=== PATIENT | female | born 1995 | race Caucasian/White ===

== ENCOUNTER 2018-10-18 13:12 | Emergency (ER) | payer MEDICAID, OTHER ==
[~2018-10-18] VITALS: Ht 152.4 cm; Wt 75.3 kg
[~2018-10-18 13:12] MED LIST: IBUP-1542 PO; PRENAT PO
[2018-10-18 13:17] VITALS: BP 123/68; PULSE 83; RESP 19; Ht 152.4 cm; Wt 75.3 kg
[2018-10-18] MEDS ORDERED: ONDANSETRON 4 MG INJ IV STA (13:37)
[2018-10-18] MEDS ORDERED: KETOROLAC 30 MG INJ IV STA (13:37)
[2018-10-18] MEDS ORDERED: IBUP-1542 PO (15:32)
[2018-10-18] MEDS ORDERED: ONDA4TAB14 PO (15:35)
--- NOTE | 2018-10-18 15:54 | ERD ---
ER Documentation Chief Complaint Chief Complaint RLQ PAIN HPI Patient is a 22-year-old female, no past medical history, presents to the ER for concerns of right lower quadrant pain for last week. Patient states today her pain became worse so she presents to the ER. Patient describes the pain to be "stinging". Patient states today she also started to feel nauseous. Patient denies any vomiting. She denies any fever. Patient denies any dysuria, frequency, urgency or hematuria. Patient denies any diarrhea or constipation. Patient states her last menstrual period was 2 weeks ago. No recent travel. No sick contacts. ROS All systems reviewed and are negative except as per history of present illness. Medications Home Meds Active Scripts Ondansetron (Ondansetron Odt) 4 Mg Tab.rapdis, 4 MG PO Q6H PRN for NAUSEA AND/OR VOMITING, #10 TAB Prov:RAVEN MOY PA-C 10/18/18 Ibuprofen* (Motrin*) 600 Mg Tab, 600 MG PO Q6, #30 TAB Prov:RAVEN MOY PA-C 10/18/18 Ibuprofen* (Motrin*) 600 Mg Tab, 600 MG PO Q6, #20 TAB Prov:CALLI RIVERA I. ARCHITECTURAL TECHNOLOGIST 06/18/15 Reported Medications Multivit/Min/Fol Ac/Iron/Pren* ( S*) 1 Tab Tab, 1 TAB PO DAILY, TAB 03/09/14 Allergies Allergies: Coded Allergies: No Known Allergy (Unverified , 03/09/14) PMhx/Soc History of Surgery: No Anesthesia Reaction: No Hx Neurological Disorder: No Hx Respiratory Disorders: No Hx Cardiac Disorders: No Hx Psychiatric Problems: No Hx Miscellaneous Medical Probl: No Hx Alcohol Use: No Hx Substance Use: No Hx Tobacco Use: No FmHx Family History: No diabetes Physical Exam Vitals Vital Signs Date Temp Pulse Resp B/P (MAP) Pulse Ox O2 O2 Flow FiO2 Time Delivery Rate 10/18/18 98.5 83 19 123/68 98 13:17 (86) Physical Exam GENERAL: Well-developed, well-nourished female. Appears in no acute distress. HEAD: Normocephalic, atraumatic. EYES: Pupils are equally reactive bilaterally. EOMs grossly intact. No conjunctival erythema. ENT: Moist mucous membranes. No uvula deviation. No kissing tonsils. NECK: Supple. No meningismus. Normal range of motion of the neck. LUNG: Clear to auscultation bilaterally. No rhonchi, wheezing, rales or coarse breath sounds. HEART: Regular rate and rhythm. No murmurs, rubs or gallops. ABDOMEN: Nondistended. Minimally tender to palpation in the right lower quadrant.. Positive bowel sounds in all four quadrants. No rebound tenderness, no guarding. (-) McBurney's point tenderness. No CVA tenderness. BACK: No midline tenderness. EXTREMITIES: Equal pulses bilaterally. No peripheral clubbing, cyanosis or edema. No unilateral leg swelling. NEUROLOGIC: Alert and oriented. Moving all four extremities without any difficul ty. Normal speech. Steady gait. SKIN: Normal color. Warm and dry. No rashes or lesions. Result Diagram: 10/18/18 1354 10/18/18 1354 Results 24 hrs Laboratory Tests Test 10/18/18 13:54 10/18/18 13:57 White Blood Count 6.7 10^3/ul Red Blood Count 4.93 10^6/ul Hemoglobin 13.9 g/dl Hematocrit 42.0 % Mean Corpuscular Volume 85.2 fl Mean Corpuscular Hemoglobin 28.2 pg Mean Corpuscular Hemoglobin Concent 33.1 g/dl Red Cell Distribution Width 12.2 % Platelet Count 229 10^3/UL Mean Platelet Volume 11.1 fl Immature Granulocytes % 0.200 % Neutrophils % 66.4 % Lymphocytes % 25.1 % Monocytes % 6.8 % Eosinophils % 0.9 % Basophils % 0.6 % Nucleated Red Blood Cells % 0.0 /100WBC Immature Granulocytes # 0.010 10^3/ul Neutrophils # 4.4 10^3/ul Lymphocytes # 1.7 10^3/ul Monocytes # 0.5 10^3/ul Eosinophils # 0.1 10^3/ul Basophils # 0.0 10^3/ul Nucleated Red Blood Cells # 0.0 10^3/ul Urine Color YELLOW Urine Clarity SLIGHTLY CLOUDY Urine pH 7.0 Urine Specific [place] 1.020 Urine Ketones NEGATIVE mg/dL Urine Nitrite NEGATIVE mg/dL Urine Bilirubin NEGATIVE mg/dL Urine Urobilinogen NEGATIVE mg/dL Urine Leukocyte Esterase NEGATIVE Carlos/ul Urine Microscopic RBC 0 /HPF Urine Microscopic WBC 1 /HPF Urine Squamous Epithelial Cells FEW /HPF Urine Hemoglobin NEGATIVE mg/dL Urine Glucose NEGATIVE mg/dL Urine Total Protein NEGATIVE mg/dl Sodium Level 141 mmol/L Potassium Level 3.8 mmol/L Chloride Level 103 mmol/L Carbon Dioxide Level 28 mmol/L Anion Gap 10 Blood Urea Nitrogen 12 mg/dl Creatinine 0.70 mg/dl Est Glomerular Filtrat Rate mL/min > 60 mL/min Glucose Level 85 mg/dl Calcium Level 9.9 mg/dl Total Bilirubin 0.4 mg/dl Direct Bilirubin 0.00 mg/dl Indirect Bilirubin 0.4 mg/dl Aspartate Amino Transf (AST/SGOT) 25 IU/L Alanine Aminotransferase (ALT/SGPT) 21 IU/L Alkaline Phosphatase 71 IU/L Total Protein 7.5 g/dl Albumin 4.6 g/dl Globulin 2.90 g/dl Albumin/Globulin Ratio 1.58 Lipase 86 U/L POC Beta HCG, Qualitative NEGATIVE Current Medications Medications Dose Sig/Murtaza Start Time Status Last (Trade) Ordered Route PRN Stop Time Admin Dose Reason Admin Ondansetron 4 mg ONCE STAT 10/18/18 DC 10/18/18 HCl (Zofran IV 13:37 14:30 Inj) 10/18/18 13:38 Ketorolac 30 mg ONCE STAT 10/18/18 DC 10/18/18 Tromethamine IV 13:37 14:30 (Toradol) 10/18/18 13:38 Procedures/MDM ED COURSE: The patient was stable throughout ED course. I kept the patient and/or family informed of laboratory and diagnostic imaging results throughout the ED course. DIAGNOSTIC IMAGING: Read by radiologist. Patient: PARISH VAZQUEZ : 1995 Age: 22 Sex: F MR #: [id number] DOS: 10/18/18 1337 Ordering MD: RAVEN MOY PA-C Location: [facility] Room/Bed: PROCEDURE: US Pelvis. CLINICAL INDICATION: pelvic pain TECHNIQUE: Multiple sonographic images of the pelvis were obtained utilizing transabdominal and endovaginal technique. The images were reviewed on a PACS workstation. COMPARISON: None. FINDINGS: The uterus is normal in size with a normal appearance of the myometrium. The uterus measures 9.0 x 3.7 x 4.5 cm. The endometrial stripe is homogeneous in appearance and has the thickness of 9 mm. The ovaries are normal in size and echogenicity. Normal Doppler flow is identified in both ovaries. The right ovary measures 2.7 x 2.0 x 1.8 cm. The left ovary measures 2.3 x 1.8 x 1.6 cm. Small free fluid is present within the pelvis. RPTAT: AA IMPRESSION: Unremarkable pelvic ultrasound. Small amount of free fluid in the posterior cul-de-sac, likely physiologic. .Mike Pete MD, MD Date Time Electronically viewed and signed by .Mike Pete MD, MD on 10/18/2018 15:26 .S/ CC: RAVEN MOY PA-C [id number] PROCEDURES: None. MEDICATIONS GIVEN: Toradol, Zofran MEDICAL DECISION MAKING: This is a 22-year-old female presents the ER for concerns of right lower quadrant pain and nausea x1 week. Vital signs were reviewed. Patient is afebrile. On exam, patient did have some mild right lower quadrant tenderness. She had no rebound or guarding. She had no peritoneal signs. IV line was established. Blood work was obtained. CBC showed no evidence of systemic infection or severe anemia. CMP showed no evidence of electrolyte abnormalities, severe acidosis, alkalosis, renal failure, or liver disease. Lipase showed no evidence of acute pancreatitis. UA showed no evidence of acute infection or hematuria. Urine test was negative. Pelvic ultrasound was unremarkable. Small amount of free fluid was noted in the posterior cul-de-sac, likely physiological. Patient reported improvement in pain prior to discharge. Explained to the patient that I am unable to definitively rule out appendicitis however my suspicion is low given that patient does not have a white count and she has had symptoms for over 1 week now. Patient was advised to monitor symptoms closely and return to the ER in 10 to 12 hours for recheck. Patient continues to have pain at that time CT scan will be considered. Differential diagnoses include but was not limited to acute coronary syndrome, AAA, mesenteric ischemia, lower lobe pneumonia, DKA, bowel perforation, cholecystitis, choledocholithiasis, ascending cholangitis, hepatic abscess, pancreatitis, PUD, gastritis, GERD, splenic rupture, diverticulitis, UTI, pyelonephritis, nephrolithiasis, appendicitis, constipation, , ectopic , PID, ovarian torsion or tubo-ovarian abscess. PRESCRIPTIONS: Ibuprofen, Zofran DISCHARGE: At this time, patient is stable for discharge and outpatient management. I have instructed the patient to follow-up with his/her primary care physician in 1-2 days. I have instructed the patient to promptly return to the ER at any time for any new or worsening symptoms including increased pain, nausea, vomiting, diarrhea, fever, weakness or LOC. The patient and/or family expressed understanding of and agreement with this plan. All questions were answered. Home care instructions were provided. Disclaimer: Inadvertent spelling and grammatical errors are likely due to E HR/dictation software use and do not reflect on the overall quality of patient care. Also, please note that the electronic time recorded on this note does not necessarily reflect the actual time of the patient encounter. Departure Diagnosis: Primary Impression: Abdominal pain Abdominal location: right lower quadrant Qualified Codes: R10.31 - Right lower quadrant pain Condition: Fair Patient Instructions: Abdominal Pain Referrals: [facility] YOU HAVE RECEIVED A MEDICAL SCREENING EXAM AND THE RESULTS INDICATE THAT YOU DO NOT HAVE A CONDITION THAT REQUIRES URGENT TREATMENT IN THE EMERGENCY DEPARTMENT. FURTHER EVALUATION AND TREATMENT OF YOUR CONDITION CAN WAIT UNTIL YOU ARE SEEN IN YOUR DOCTORS OFFICE WITHIN THE NEXT 1-2 DAYS. IT IS YOUR RESPONSIBILITY TO MAKE AN APPOINTMENT FOR FOLOW-UP CARE. IF YOU HAVE A PRIMARY DOCTOR --you should call your primary doctor and schedule an appointment IF YOU DO NOT HAVE A PRIMARY DOCTOR YOU CAN CALL OUR PHYSICIAN REFERRAL HOTLINE AT IF YOU CAN NOT AFFORD TO SEE A PHYSICIAN YOU CAN CHOSE FROM THE FOLLOWING [facility] [address] [facility]. [facility] [address] [facility]. [facility] [address] [facility] [address] [facility] [address] [facility]. [facility]. [address] [facility]. [facility] YOU HAVE RECEIVED A MEDICAL SCREENING EXAM AND THE RESULTS INDICATE THAT YOU DO NOT HAVE A CONDITION THAT REQUIRES URGENT TREATMENT IN THE EMERGENCY DEPARTMENT. FURTHER EVALUATION AND TREATMENT OF YOUR CONDITION CAN WAIT UNTIL YOU ARE SEEN IN YOUR DOCTORS OFFICE WITHIN THE NEXT 1-2 DAYS. IT IS YOUR RESPONSIBILITY TO MAKE AN APPOINTMENT FOR FOLOW-UP CARE. IF YOU HAVE A PRIMARY DOCTOR --you should call your primary doctor and schedule and appointment IF YOU DO NOT HAVE A PRIMARY DOCTOR YOU CAN CALL OUR PHYSICIAN REFERRAL HOTLINE AT . IF YOU CAN NOT AFFORD TO SEE A PHYSICIAN YOU CAN CHOSE FROM THE FOLLOWING [facility]: [facility] [address] [place] [address] [facility] [address] [place] [address] [facility] [address] [place] [address] Additional Instructions: Abdominal pain recheck advised 10-12 hours or sooner for any new or worsening pain. RAVEN MOY PA-C October 18, 2018 15:54
== END 2018-10-18 16:19 | disposition home or self-care (01) ==
LOC: FTE 13:12
DX: R10.31 Right lower quadrant pain (principal); R10.2 Pelvic and perineal pain
CPT/HCPCS: 36415; 76830; 76856; 80053; 81001; 81025; 83690; 85025; 96374; 96375; J1885; J2405; Z7502; 81003

== ENCOUNTER 2018-10-25 13:24 | Emergency (ER) | payer OTHER ==
[~2018-10-25] VITALS: Ht 152.4 cm; Wt 74.4 kg
[~2018-10-25 13:24] MED LIST changes: +ONDA4TAB14 PO
[2018-10-25 13:33] VITALS: BP 129/78; PULSE 90; RESP 16; Ht 152.4 cm; Wt 74.4 kg
--- NOTE | 2018-10-25 14:26 | ERD ---
ER Documentation Chief Complaint Chief Complaint RT SIDED BACK PAIN RADIATING TO FRONT. NO C/O DYSURIA. SEEN FOR SAME HPI 22-year-old female, previously healthy, presents to the emergency department, complaining of 1 week with progressive right lower quadrant abdominal pain, radiating to the back the patient denies fever, no chills, no diarrhea or constipation, associated with dysuria., No nausea or vomiting. ROS All systems reviewed and are negative except as per history of present illness. Medications Home Meds Active Scripts Ondansetron (Ondansetron Odt) 4 Mg Tab.rapdis, 4 MG PO Q6H PRN for NAUSEA AND/OR VOMITING, #10 TAB Prov:RAVEN MOY PA-C 10/18/18 Ibuprofen* (Motrin*) 600 Mg Tab, 600 MG PO Q6, #30 TAB Prov:RAVEN MOY PA-C 10/18/18 Ibuprofen* (Motrin*) 600 Mg Tab, 600 MG PO Q6, #20 TAB Prov:CALLI RIVERA NP 06/18/15 Reported Medications Multivit/Min/Fol Ac/Iron/Pren* ( S*) 1 Tab Tab, 1 TAB PO DAILY, TAB 03/09/14 Allergies Allergies: Coded Allergies: No Known Allergy (Unverified , 03/09/14) PMhx/Soc History of Surgery: No Anesthesia Reaction: No Hx Neurological Disorder: No Hx Respiratory Disorders: No Hx Cardiac Disorders: No Hx Psychiatric Problems: No Hx Miscellaneous Medical Probl: No Hx Alcohol Use: No Hx Substance Use: No Hx Tobacco Use: No Physical Exam Vitals Vital Signs Date Temp Pulse Resp B/P (MAP) Pulse Ox O2 O2 Flow FiO2 Time Delivery Rate 10/25/18 97.7 90 16 129/78 99 13:33 (95) Physical Exam Const: No acute distress Head: Atraumatic Eyes: Normal Conjunctiva ENT: Normal External Ears, Nose and Mouth. Neck: Full range of motion. No meningismus. Resp: Clear to auscultation bilaterally Cardio: Regular rate and rhythm, no murmurs Abd: Soft, mild pelvic pain to deep palpation, no peritoneal signs, non distended. Normal bowel sounds Skin: No petechiae or rashes Back: No midline or flank tenderness Ext: No cyanosis, or edema Neur: Awake and alert Psych: Normal Mood and Affect Result Diagram: 10/25/18 1444 10/25/18 1444 Results 24 hrs Laboratory Tests Test 10/25/18 14:44 10/25/18 14:47 10/25/18 14:48 White Blood Count 7.7 10^3/ul Red Blood Count 4.85 10^6/ul Hemoglobin 13.6 g/dl Hematocrit 41.8 % Mean Corpuscular Volume 86.2 fl Mean Corpuscular Hemoglobin 28.0 pg Mean Corpuscular 32.5 g/dl Hemoglobin Concent Red Cell Distribution Width 12.6 % Platelet Count 217 10^3/UL Mean Platelet Volume 11.3 fl Immature Granulocytes % 0.300 % Neutrophils % 63.9 % Lymphocytes % 27.8 % Monocytes % 6.3 % Eosinophils % 1.2 % Basophils % 0.5 % Nucleated Red Blood Cells % 0.0 /100WBC Immature Granulocytes # 0.020 10^3/ul Neutrophils # 4.9 10^3/ul Lymphocytes # 2.1 10^3/ul Monocytes # 0.5 10^3/ul Eosinophils # 0.1 10^3/ul Basophils # 0.0 10^3/ul Nucleated Red Blood Cells # 0.0 10^3/ul Sodium Level 140 mmol/L Potassium Level 3.9 mmol/L Chloride Level 105 mmol/L Carbon Dioxide Level 25 mmol/L Anion Gap 10 Blood Urea Nitrogen 11 mg/dl Creatinine 0.70 mg/dl Est Glomerular Filtrat Rate mL/min > 60 mL/min Glucose Level 90 mg/dl Calcium Level 9.5 mg/dl Lipase 72 U/L POC Beta HCG, Qualitative NEGATIVE Bedside Urine pH (LAB) 6.0 Bedside Urine Protein (LAB) Negative Bedside Urine Glucose (UA) Negative Bedside Urine Ketones (LAB) Negative Bedside Urine Blood Negative Bedside Urine Nitrite (LAB) Negative Bedside Urine Leukocyte Esterase 1+ (L Procedures/MDM Differential diagnosis include but not limited to: UTI, colitis, gastroenteritis, kidney stones, irritable bowel syndrome, inflammatory bowel syn drome, malabsorption syndrome, cholelithiasis, food intolerance, medication side effect, pancreatitis, diverticulitis, bowel obstruction. Low suspicion for acute abdomen Physical examination and clinical presentation consistent most likely with acute cystitis, no evidence of pyelonephritis. During the ED course the patient remained stable, no new complaints. Results and clinical impression discussed with patient who agrees with management. The patient is stable to be treated outpatient and will be discharged home, some side effects of prescribed medications (headache, rash, nausea, vomiting, diarrhea, drowsiness, habituation, bleeding, hypertension, interactions with other medications) were reviewed. The patient was instructed to follow up with the primary care provider in the next 48h. If symptoms persist, worsen or new symptoms develop, then patient should return to the ED immediately. Instructions explained and given directly by me to the patient with acknowledgment and demonstrated understanding. Disclaimer: Inadvertent spelling and grammatical errors are likely due to EHR/ dictation software use and do not reflect on the overall quality of patient care. Also, please note that the electronic time recorded on this note does not necessarily reflect the actual time of the patient encounter. Departure Diagnosis: Primary Impression: Abdominal pain Additional Impression: Acute cystitis Condition: Stable Additional Instructions: Thank you very much for allowing us to participate in your care. Your health and safety is our top priority at [facility]. Call your primary care doctor TOMORROW for an appointment during the next 2-4 days and bring all the information provided. Have prescriptions filled and follow precisely the directions on the label. If the symptoms get worse and your provider is unavailable, return to the Emergency Department immediately. FAITH LAY MD October 25, 2018 14:26
[2018-10-25] MEDS ORDERED: CIPR-193 PO (15:41)
== END 2018-10-25 16:03 | disposition home or self-care (01) ==
LOC: FTE 13:24
DX: N30.00 Acute cystitis without hematuria (principal)
CPT/HCPCS: 36415; 74176; 80048; 81003; 81025; 83690; 85025; Z7502

== ENCOUNTER 2018-12-11 01:00 | Emergency (ER) | payer OTHER ==
[~2018-12-11] VITALS: Ht 152.4 cm; Wt 75.3 kg
[~2018-12-11 01:00] MED LIST changes: +CIPR-193 PO
[2018-12-11 01:02] VITALS: BP 131/73; PULSE 70; RESP 16; Ht 152.4 cm; Wt 75.3 kg
[2018-12-11] MEDS ORDERED: ACETAMINOPHEN 500 MG TAB PO STA (01:47)
[2018-12-11] MEDS ORDERED: MECLIZINE 12.5 MG TAB PO ONE (02:00)
--- NOTE | 2018-12-11 02:46 | ERD ---
ER Documentation Chief Complaint Chief Complaint PATRICIA/back pain/AP x1 week w/ nausea/diarrhea/dizziness HPI This is a 22-year-old female who presented emergency department with multiple complaints including headache, back pain, abdominal pain for about a week, nausea and vomiting, with diarrhea and dizziness that is on and off for about a week. LMP: Stated that she is on it. A0. Denies headache, head injury, loss of consciousness, dizziness, neck pain, neck stiffness, throat pain, difficulty swallowing, difficulty breathing lying flat, shoulder pain, chest pain, back pain, abdominal pain, nausea, vomiting, constipation, diarrhea, urinary symptoms, or possibility being pregn ant, loss of bowel and bladder control, trauma, injury, falls, difficulty walking due to pain, numbness or tingling sensation, calf pain, recent travel, recent major surgery in the last 3 weeks, calf pain, recent long travel, recent exposure to any illness, recent antibiotic use in the last 3 months, fever, chills, seizures. Past medical history: Denies. Surgical history: Denies. Social: Denies smoking, use of alcoholic beverages, use of illegal drugs. ROS All systems reviewed and are negative except as per history of present illness. Medications Home Meds Active Scripts Ondansetron Hcl* (Zofran*) 4 Mg Tablet, 4 MG PO Q8H PRN for NAUSEA AND/OR VOMITING, #30 TAB Prov:SABINO STEPHEN 12/11/18 Acetaminophen* (Tylophen*) 500 Mg Capsule, 1 CAP PO Q6H PRN for PAIN AND OR ELEVATED TEMP, #20 CAP Prov:SABINO STEPHEN 12/11/18 Meclizine Hcl* (Antivert*) 12.5 Mg Tab, 12.5 MG PO Q6H PRN for DIZZINESS, #20 TAB Prov:SABINO STEPHEN 12/11/18 Ciprofloxacin Hcl* (Ciprofloxacin Hcl*) 250 Mg Tablet, 250 MG PO BID, #6 TAB Prov:FAITH LAY MD 10/25/18 Ondansetron (Ondansetron Odt) 4 Mg Tab.rapdis, 4 MG PO Q6H PRN for NAUSEA AND/OR VOMITING, #10 TAB Prov:RAVEN MOY PA-C 10/18/18 Ibuprofen* (Motrin*) 600 Mg Tab, 600 MG PO Q6, #30 TAB Prov:RAVEN MOY PA-C 10/18/18 Ibuprofen* (Motrin*) 600 Mg Tab, 600 MG PO Q6, #20 TAB Prov:RIVERACALLI Rodrigo TAM 06/18/15 Reported Medications Multivit/Min/Fol Ac/Iron/Pren* ( S*) 1 Tab Tab, 1 TAB PO DAILY, TAB 03/09/14 Allergies Allergies: Coded Allergies: No Known Allergy (Unverified , 03/09/14) PMhx/Soc History of Surgery: No Anesthesia Reaction: No Hx Neurological Disorder: No Hx Respiratory Disorders: Yes (asthma 2011 last episode.) Hx Cardiac Disorders: No Hx Psychiatric Problems: No Hx Miscellaneous Medical Probl: No Hx Alcohol Use: Yes (occasionally.) Hx Substance Use: No Hx Tobacco Use: No Physical Exam Vitals Vital Signs Date Temp Pulse Resp B/P (MAP) Pulse Ox O2 O2 Flow FiO2 Time Delivery Rate 12/11/18 97.7 70 16 131/73 99 01:02 (92) Physical Exam Const: No acute distress Head: Atraumatic Eyes: Normal Conjunctiva. Eyeballs are not sunken. No signs of severe dehydration. ENT: Normal External Ears, Nose and Mouth. Bilateral ears: TMs are not erythematous but no bleeding. No discharge with no hearing loss. No mastoid tenderness. Nose: Midline without deviation. There is no frontal or maxillary sinus tenderness palpation. Throat: Uvula is midline and nondisplaced. Tonsils are +1 bilaterally without redness and without exudates. Tolerating secretions. Patent airway. Speaks full and clear sentences. No tripoding. No signs of airway obstruction. Neck: Full range of motion. No meningismus. No nuchal rigidity. No signs of meningeal irritation. Resp: Clear to auscultation bilaterally. No accessory muscle use in breathing. Cardio: Regular rate and rhythm, no murmurs Abd: Soft, non tender, non distended. Normal bowel sounds. Negative Lott sign. Negative Nomi sign (heel jar test). Negative psoas sign. Negative Rovsing sign. Able to jump 10 times without developing lower abdominal pain. No CVA tenderness. Ambulatory with steady gait and without pain to abdomen. Skin: No petechiae or rashes. Color appears normal for ethnicity. No skin tenting. No signs of severe dehydration. Back: No midline or flank tenderness Ext: No cyanosis, or edema. No cyanosis. Unremarkable bilateral upper and lower extremities. Neur: Awake and alert. Romberg test is negative. No neurological deficits. Psych: Normal Mood and Affect. Results 24 hrs Laboratory Tests Test 12/11/18 02:10 12/11/18 02:13 Urine Color STRAW Urine Clarity CLEAR Urine pH 6.0 Urine Specific [place] 1.013 Urine Ketones NEGATIVE mg/dL Urine Nitrite NEGATIVE mg/dL Urine Bilirubin NEGATIVE mg/dL Urine Urobilinogen NEGATIVE mg/dL Urine Leukocyte Esterase TRACE Carlos/ul Urine Microscopic RBC 0 /HPF Urine Microscopic WBC 1 /HPF Urine Squamous Epithelial Cells FEW /HPF Urine Hemoglobin NEGATIVE mg/dL Urine Glucose NEGATIVE mg/dL Urine Total Protein NEGATIVE mg/dl POC Beta HCG, Qualitative NEGATIVE Current Medications Medications Dose Sig/Murtaza Start Time Status Last (Trade) Ordered Route PRN Stop Time Admin Dose Reason Admin Meclizine 25 mg ONCE ONCE 12/11/18 DC 12/11/18 HCl PO 02:00 12/11/18 02:00 (Antivert) 02:01 500 mg ONCE STAT 12/11/18 DC 12/11/18 Acetaminophen PO 01:47 12/11/18 02:00 (Tylenol 01:48 Tab) Procedures/MDM Diagnostic tests: POC urine : Negative. Urinalysis: Reviewed. Treatment: Tylenol. Antivert. Re-evaluation: No episode of emesis in the emergency department. Denies headache, dizziness, neck pain, chest pain, back pain, abdominal pain. Negative Lott sign. Negative Nomi sign (heel jar test). Negative psoas sign. Negative Rovsing sign. No CVA tenderness. Able to jump 10 times without developing lower abdominal pain. Romberg test negative. No neurological deficits. Stated that she feels much better this time and that she is ready to go home. Stated that she is comfortable to go home. Differential diagnosis I have low suspicion for sepsis, meningitis, subarachnoid hemorrhage, pancreatitis, cholecystitis, diverticulitis, bowel obstruction, diverticulitis with abscess, appendicitis, ruptured appendicitis, nephrolithiasis, pyelo nephritis, obstructing kidney stones, septic stone, severe dehydration. Final diagnosis: Dizziness. Viral syndrome. Prescription: Antivert. Tylenol. Zofran. Follow-up with PCP in the next 24-48 hours. Come back here in the emergency department for any new symptoms or any worsening symptoms. All questions and concerns were answered. Patient and family members verbalized understanding and agreed with plan of care. Hemodynamically stable on discharge. Departure Diagnosis: Primary Impression: Multiple complaints Additional Impressions: Viral syndrome Dizziness Condition: Stable Additional Instructions: Follow-up with PCP in the next 24-48 hours. Come back here in the emergency department for any new symptoms or any worsening symptoms. SABINO STEPHEN Dec 11, 2018 02:46
[2018-12-11] MEDS ORDERED: ACET500C5 PO (02:54)
[2018-12-11] MEDS ORDERED: ONDA4TAB8 PO (02:54)
[2018-12-11] MEDS ORDERED: MECL12.574 PO (02:54)
== END 2018-12-11 03:08 | disposition home or self-care (01) ==
LOC: FTE 01:00
DX: R42 Dizziness and giddiness (principal); B34.9 Viral infection, unspecified; R11.2 Nausea with vomiting, unspecified; J45.909 Unspecified asthma, uncomplicated
CPT/HCPCS: 81001; 81025; 87086; Z7502; Z7610; 99283